=== PATIENT | female | born 2000 | race Caucasian/White ===

== ENCOUNTER 2018-02-03 18:58 | Inpatient (IN) ==
[2018-02-03] MEDS ORDERED: Diphtheria/Tetanus/Pertussis Vaccine Inj 0.5 ML Syringe IM ONE (19:32)
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
[2018-02-03 20:10] LABS: Baso # (Auto) 0.1 th/mm3 (0.0-0.2); Baso % (Auto) 0.4 % (0.0-2.0); Eos # (Auto) 0.1 th/mm3 (0.0-0.4); Eos % (Auto) 0.4 % (0.0-4.0); Hematocrit 42.2 % (35.0-46.0); Hemoglobin 14.2 gm/dL (11.6-15.3); Lymph # (Auto) 1.7 th/mm3 (1.0-4.8); Lymph % (Auto) 11.8 % (9.0-44.0); Mean Corpuscular HGB Conc 33.6 % (32.0-36.0); Mean Corpuscular Hemoglobin 28.5 pg (27.0-34.0); Mean Corpuscular Volume 84.9 fL (80.0-100.0); Mean Platelet Volume 8.1 fL (7.0-11.0); Mono # (Auto) 1.3 th/mm3 (0.0-0.9); Mono % (Auto) 9.1 % (0.0-8.0); Neut # (Auto) 11.4 th/mm3 (1.8-7.7); Neut % (Auto) 78.3 % (16.0-70.0); Platelet Count 185 th/mm3 (150-450); Red Blood Count 4.97 mil/mm3 (4.00-5.30); Red Cell Distribution Width 12.7 % (11.6-17.2); White Blood Count 14.6 th/mm3 (4.0-11.0)
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
[2018-02-03 20:25] LABS: Activated Partial Thrombo Time 23.8 sec (23.4-31.7); INR 1.1 Ratio; Prothrombin Time 11.2 sec (9.8-11.6)
[2018-02-03 20:49] LABS: Calcium 8.5 mg/dL (8.5-10.1); Carbon Dioxide 25.7 meq/L (21.0-32.0); Potassium 3.8 meq/L (3.5-5.1)
[2018-02-03] MEDS ORDERED: Sod Chloride 0.9% Inj 1,000 ML IV.SIG SCH (21:30)
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
[2018-02-03] MEDS ORDERED: Morphine Inj 4 MG/ML Vial IV.PUSH ONE (22:37)
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
[2018-02-04] MEDS: Morphine Sulfate Inj 2 MG/ML Vial IV.PUSH PRN ×13 (01:11→22:52)
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
[2018-02-04 02:04] LABS: Hematocrit 33.9 % (35.0-46.0); Hemoglobin 11.9 gm/dL (11.6-15.3)
[2018-02-04] MEDS: Chlorhexidine Gluconate 2% 1 Pack (2 Cloths) TOPICAL SCH (03:33)
[2018-02-04] MEDS ORDERED: Chlorhexidine Gluconate 2% 1 Pack (2 Cloths) TOPICAL PRN (04:00)
[2018-02-04] MEDS ORDERED: fentaNYL Citrate Inj 250 MCG/5 ML Ampul ONE (07:13)
[2018-02-04 07:56] LABS: Baso % (Auto) 0.2 % (0.0-2.0); Eos % (Auto) 0.2 % (0.0-4.0); Hematocrit 35.5 % (35.0-46.0); Hemoglobin 12.6 gm/dL (11.6-15.3); Lymph # (Auto) 1.9 th/mm3 (1.0-4.8); Lymph % (Auto) 17.9 % (9.0-44.0); Mean Corpuscular HGB Conc 35.3 % (32.0-36.0); Mean Corpuscular Hemoglobin 29.7 pg (27.0-34.0); Mean Platelet Volume 7.6 fL (7.0-11.0); Mono # (Auto) 1.2 th/mm3 (0.0-0.9); Mono % (Auto) 11.5 % (0.0-8.0); Neut # (Auto) 7.4 th/mm3 (1.8-7.7); Neut % (Auto) 70.2 % (16.0-70.0); Platelet Count 147 th/mm3 (150-450); Red Blood Count 4.23 mil/mm3 (4.00-5.30); Red Cell Distribution Width 12.5 % (11.6-17.2); White Blood Count 10.5 th/mm3 (4.0-11.0)
[2018-02-04] MEDS: Senna/Docusate Sodium 8.6/50 MG Tablet PO SCH ×2 (10:25→20:40)
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
[2018-02-04 11:48] LABS: Hematocrit 37.3 % (35.0-46.0); Hemoglobin 12.9 gm/dL (11.6-15.3)
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
--- NOTE | 2018-02-04 15:21 | ECG ---
Date Performed: 02/03/2018 Time Performed: 19:13:01 PTAGE: 17 years EKG: SINUS TACHYCARDIA NONSPECIFIC T-WAVE ABNORMALITY ABNORMAL RHYTHM ECG NO PREVIOUS TRACING DOCTOR: Siddharth Jama Interpretating Date/Time 02/04/2018 15:19:39
[2018-02-04 15:44] LABS: Hematocrit 35.5 % (35.0-46.0); Hemoglobin 12.4 gm/dL (11.6-15.3)
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
[2018-02-04 16:02] LABS: Amylase 30 U/L (25-115); Lipase 115 U/L (73-393)
[2018-02-04 20:30] LABS: Hematocrit 35.9 % (35.0-46.0); Hemoglobin 12.3 gm/dL (11.6-15.3)
[2018-02-05] MEDS: Morphine Sulfate Inj 2 MG/ML Vial IV.PUSH PRN ×8 (00:42→15:45)
[2018-02-05 01:24] LABS: Hematocrit 34.9 % (35.0-46.0); Hemoglobin 11.9 gm/dL (11.6-15.3)
[2018-02-05] MEDS: Chlorhexidine Gluconate 2% 1 Pack (2 Cloths) TOPICAL SCH (03:50)
[2018-02-05 04:21] LABS: Baso % (Auto) 0.1 % (0.0-2.0); Eos % (Auto) 0.3 % (0.0-4.0); Hematocrit 33.4 % (35.0-46.0); Hemoglobin 11.6 gm/dL (11.6-15.3); Lymph # (Auto) 1.1 th/mm3 (1.0-4.8); Lymph % (Auto) 9.6 % (9.0-44.0); Mean Corpuscular HGB Conc 34.8 % (32.0-36.0); Mean Corpuscular Hemoglobin 29.2 pg (27.0-34.0); Mean Corpuscular Volume 84.1 fL (80.0-100.0); Mean Platelet Volume 7.6 fL (7.0-11.0); Mono # (Auto) 1.4 th/mm3 (0.0-0.9); Mono % (Auto) 12.6 % (0.0-8.0); Neut # (Auto) 8.9 th/mm3 (1.8-7.7); Neut % (Auto) 77.4 % (16.0-70.0); Platelet Count 133 th/mm3 (150-450); Red Blood Count 3.97 mil/mm3 (4.00-5.30); Red Cell Distribution Width 12.6 % (11.6-17.2); White Blood Count 11.4 th/mm3 (4.0-11.0)
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
[2018-02-05 04:44] LABS: Alanine Aminotransferase 22 U/L (9-42); Anion Gap 12 meq/L (5-15); Aspartate Aminotransferase 22 U/L (16-38); Blood Urea Nitrogen 7 mg/dL (7-18); Calcium 7.8 mg/dL (8.5-10.1); Carbon Dioxide 21.7 meq/L (21.0-32.0); Chloride 102 meq/L (98-107); Glomerular Filtration Rate Greater Than 89 mL/min (>89); Glucose,Random 91 mg/dL (74-106); Potassium 3.8 meq/L (3.5-5.1); Sodium 136 meq/L (136-145)
[2018-02-05 04:47] LABS: Alkaline Phosphatase 62 U/L (45-117); Total Protein 6.2 g/dL (6.4-8.2)
[2018-02-05] MEDS ORDERED: Sodium Chlor 0.9% Inj 250 ML IV.SIG SCH (10:00)
[2018-02-05] MEDS ORDERED: Piperacil/Tazo 3.375 GM Premix 50 ML IV.SIG ONE (10:15)
[2018-02-05 10:30] LABS: Hematocrit 35.8 % (35.0-46.0); Hemoglobin 12.3 gm/dL (11.6-15.3)
[2018-02-05] MEDS ORDERED: Ketorolac Inj 30 MG/ML (IVP) Vial IV.PUSH ONE (10:42)
[2018-02-05] MEDS ORDERED: Lidocaine PF 1% Inj 5 ML Syringe OTHER ONE (10:42)
[2018-02-05] MEDS ORDERED: Normosol-R pH 7.4 Inj 1,000 ML IV.CONT ONE (10:42)
[2018-02-05] MEDS ORDERED: Neostigmine Inj 5 MG/5 ML Syringe IV.PUSH ONE (10:42)
[2018-02-05] MEDS ORDERED: Glycopyrrolate Inj 1 MG/5 ML Syringe IV.PUSH ONE (10:42)
[2018-02-05] MEDS ORDERED: *morphine SULFATE 4 MG/ML PERIprocedure ONLY ONE (12:55)
[2018-02-05] MEDS: Senna/Docusate Sodium 8.6/50 MG Tablet PO SCH ×2 (13:38→21:18)
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
[2018-02-05 16:02] LABS: Hematocrit 36.8 % (35.0-46.0); Hemoglobin 12.8 gm/dL (11.6-15.3)
[2018-02-05] MEDS ORDERED: Morphine Inj 4 MG/ML Vial ONE (17:25)
[2018-02-05] MEDS: Morphine Inj 4 MG/ML Vial IV.PUSH PRN ×3 (17:40→21:55)
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
[2018-02-06] MEDS: Morphine Inj 4 MG/ML Vial IV.PUSH PRN ×4 (00:15→06:27)
[2018-02-06 03:18] LABS: Baso % (Auto) 0.1 % (0.0-2.0); Hemoglobin 11.2 gm/dL (11.6-15.3); Lymph # (Auto) 1.5 th/mm3 (1.0-4.8); Mean Corpuscular Hemoglobin 28.7 pg (27.0-34.0); Mean Corpuscular Volume 84.4 fL (80.0-100.0); Mono # (Auto) 1.5 th/mm3 (0.0-0.9); Mono % (Auto) 8.7 % (0.0-8.0); Neut # (Auto) 13.7 th/mm3 (1.8-7.7); Neut % (Auto) 82.2 % (16.0-70.0); Platelet Count 184 th/mm3 (150-450); Red Blood Count 3.91 mil/mm3 (4.00-5.30); Red Cell Distribution Width 12.7 % (11.6-17.2); White Blood Count 16.7 th/mm3 (4.0-11.0)
[2018-02-06 04:02] LABS: Albumin 2.5 g/dL (3.4-5.0); Anion Gap 11 meq/L (5-15); Aspartate Aminotransferase 22 U/L (16-38); Blood Urea Nitrogen 8 mg/dL (7-18); Calcium 7.7 mg/dL (8.5-10.1); Carbon Dioxide 23.9 meq/L (21.0-32.0); Chloride 106 meq/L (98-107); Glomerular Filtration Rate Greater Than 89 mL/min (>89); Glucose,Random 101 mg/dL (74-106); Potassium 3.9 meq/L (3.5-5.1); Sodium 141 meq/L (136-145)
[2018-02-06 04:06] LABS: Alanine Aminotransferase 20 U/L (9-42); Alkaline Phosphatase 53 U/L (45-117); Total Protein 5.7 g/dL (6.4-8.2)
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
[2018-02-06] MEDS: Chlorhexidine Gluconate 2% 1 Pack (2 Cloths) TOPICAL SCH (06:27)
[2018-02-06] MEDS ORDERED: Naloxone Inj 0.4 MG/ML Vial IV.PUSH PRN (06:44)
[2018-02-06] MEDS: Pantoprazole Inj 40 MG Vial IV.PUSH SCH ×2 (07:02→21:17)
[2018-02-06] MEDS: HYDROmorphone PCA Inj 6 MG/30 ML PCA.VIAL PCA PRN ×3 (08:00→21:12)
[2018-02-06] MEDS: Senna/Docusate Sodium 8.6/50 MG Tablet PO SCH ×2 (08:51→21:11)
[2018-02-07 03:41] LABS: Baso % (Auto) 0.4 % (0.0-2.0); Eos # (Auto) 0.3 th/mm3 (0.0-0.4); Eos % (Auto) 2.2 % (0.0-4.0); Hematocrit 29.7 % (35.0-46.0); Hemoglobin 10.5 gm/dL (11.6-15.3); Lymph # (Auto) 2.6 th/mm3 (1.0-4.8); Lymph % (Auto) 21.1 % (9.0-44.0); Mean Corpuscular HGB Conc 35.5 % (32.0-36.0); Mean Corpuscular Hemoglobin 29.5 pg (27.0-34.0); Mean Corpuscular Volume 83.2 fL (80.0-100.0); Mean Platelet Volume 7.1 fL (7.0-11.0); Mono # (Auto) 2.1 th/mm3 (0.0-0.9); Mono % (Auto) 16.9 % (0.0-8.0); Neut # (Auto) 7.3 th/mm3 (1.8-7.7); Neut % (Auto) 59.4 % (16.0-70.0); Platelet Count 271 th/mm3 (150-450); Red Blood Count 3.57 mil/mm3 (4.00-5.30); Red Cell Distribution Width 12.6 % (11.6-17.2); White Blood Count 12.2 th/mm3 (4.0-11.0)
[2018-02-07 04:03] LABS: Albumin 2.5 g/dL (3.4-5.0); Anion Gap 9 meq/L (5-15); Aspartate Aminotransferase 38 U/L (16-38); Blood Urea Nitrogen 5 mg/dL (7-18); Carbon Dioxide 27.5 meq/L (21.0-32.0); Chloride 103 meq/L (98-107); Glomerular Filtration Rate Greater Than 89 mL/min (>89); Glucose,Random 95 mg/dL (74-106); Potassium 3.6 meq/L (3.5-5.1); Sodium 139 meq/L (136-145)
[2018-02-07 04:06] LABS: Alanine Aminotransferase 25 U/L (9-42); Alkaline Phosphatase 52 U/L (45-117)
[2018-02-07] MEDS: Chlorhexidine Gluconate 2% 1 Pack (2 Cloths) TOPICAL SCH (05:00)
[2018-02-07] MEDS: HYDROmorphone PCA Inj 6 MG/30 ML PCA.VIAL PCA PRN ×2 (05:00→13:38)
[2018-02-07] MEDS: Pantoprazole Inj 40 MG Vial IV.PUSH SCH ×2 (07:59→18:54)
[2018-02-07] MEDS: Senna/Docusate Sodium 8.6/50 MG Tablet PO SCH ×2 (07:59→20:24)
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
[2018-02-08] MEDS: HYDROmorphone PCA Inj 6 MG/30 ML PCA.VIAL PCA PRN (00:11)
[2018-02-08] MEDS: Chlorhexidine Gluconate 2% 1 Pack (2 Cloths) TOPICAL SCH (04:17)
[2018-02-08 04:34] LABS: Baso # (Auto) 0.1 th/mm3 (0.0-0.2); Baso % (Auto) 0.5 % (0.0-2.0); Eos # (Auto) 0.5 th/mm3 (0.0-0.4); Eos % (Auto) 5.2 % (0.0-4.0); Hematocrit 30.4 % (35.0-46.0); Lymph % (Auto) 20.3 % (9.0-44.0); Mean Corpuscular Hemoglobin 30.3 pg (27.0-34.0); Mean Corpuscular Volume 83.7 fL (80.0-100.0); Mean Platelet Volume 7.9 fL (7.0-11.0); Mono # (Auto) 1.3 th/mm3 (0.0-0.9); Mono % (Auto) 13.2 % (0.0-8.0); Neut # (Auto) 6.1 th/mm3 (1.8-7.7); Neut % (Auto) 60.8 % (16.0-70.0); Platelet Count 355 th/mm3 (150-450); Red Blood Count 3.64 mil/mm3 (4.00-5.30); Red Cell Distribution Width 12.4 % (11.6-17.2)
[2018-02-08 04:38] LABS: Mean Corpuscular HGB Conc 36.2 % (32.0-36.0)
[2018-02-08 05:01] LABS: Alanine Aminotransferase 43 U/L (9-42); Albumin 2.5 g/dL (3.4-5.0); Anion Gap 8 meq/L (5-15); Aspartate Aminotransferase 55 U/L (16-38); Blood Urea Nitrogen 5 mg/dL (7-18); Calcium 7.8 mg/dL (8.5-10.1); Chloride 105 meq/L (98-107); Glomerular Filtration Rate Greater Than 89 mL/min (>89); Glucose,Random 78 mg/dL (74-106); Potassium 3.2 meq/L (3.5-5.1); Sodium 142 meq/L (136-145)
[2018-02-08 05:03] LABS: Alkaline Phosphatase 53 U/L (45-117)
[2018-02-08 06:48] LABS: Platelet Estimate Normal (Normal); Platelet Morphology Normal (Normal)
[2018-02-08] MEDS: Pantoprazole Inj 40 MG Vial IV.PUSH SCH ×2 (06:53→20:27)
[2018-02-08] MEDS ORDERED: Morphine Inj 4 MG/ML Vial IV.PUSH PRN (09:27)
[2018-02-08] MEDS: Senna/Docusate Sodium 8.6/50 MG Tablet PO SCH ×2 (09:33→20:28)
[2018-02-08] MEDS: Enoxaparin Inj 30 MG/0.3 ML Syringe SQ SCH ×2 (12:11→20:27)
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
[2018-02-09] MEDS: Pantoprazole Inj 40 MG Vial IV.PUSH SCH ×2 (06:33→18:08)
[2018-02-09] MEDS: Senna/Docusate Sodium 8.6/50 MG Tablet PO SCH ×2 (08:58→20:39)
[2018-02-09] MEDS: Enoxaparin Inj 30 MG/0.3 ML Syringe SQ SCH ×2 (08:59→20:35)
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
[2018-02-10] MEDS: Pantoprazole Inj 40 MG Vial IV.PUSH SCH (06:40)
[2018-02-10 07:02] VITALS: RESP 18; O2SAT 95
[2018-02-10] MEDS ORDERED: Pneumococcal-13 Valent Ped Vacc Inj 0.5 ML Syringe IM ONE ×2 (08:06→10:45)
[2018-02-10] MEDS ORDERED: Influenza (Quadrivalent) Vaccine 0.5 ML Syringe IM ONE ×2 (08:06→10:45)
[2018-02-10] MEDS: Senna/Docusate Sodium 8.6/50 MG Tablet PO SCH (08:43)
[2018-02-10] MEDS: Enoxaparin Inj 30 MG/0.3 ML Syringe SQ SCH (08:43)
[2018-02-10 11:17] VITALS: BP 107/66; PULSE 89; TEMP 97.6
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
== END 2018-02-10 16:10 | disposition home or self-care (01) ==
LOC: NEPC 18:58 → NEDA 22:35 → N03 02-04 02:00 → N07 02-08 15:01
PROVIDERS: ADMIT Surgery; ATTEND Surgery
PROC: SPLCTMY (ICD-10-PCS; 2018-02-05 10:42)